=== PATIENT | female | born 1965 | race Asian ===

== ENCOUNTER 2017-11-22 10:14 | Emergency (ER) | payer OTHER ==
[~2017-11-22] VITALS: Ht 157.5 cm; Wt 70.0 kg
[2017-11-22] MEDS ORDERED: ASPI-986 PO (10:21)
[2017-11-22] MEDS ORDERED: SODIUM CHLORIDE 0.9% 500 ML IV ONE (10:32)
[2017-11-22 11:05] LABS: BASOPHILS % 0.7 % (0.0-2.0); EOSINOPHILS % 5.3 % (0.0-5.0); HEMATOCRIT. 40.1 % (36.0-48.0); HEMOGLOBIN. 13.1 g/dL (12.0-16.0); LYMPHOCYTES % 20.8 % (20.0-50.0); MEAN CORPUSCULAR HEMOGLOBIN 26.9 pg (28.0-32.0); MEAN CORPUSCULAR VOLUME 82.5 fL (81.0-99.0); MONOCYTES % 7.4 % (2.0-8.0); NEUTROPHILS % 65.8 % (40.0-76.0); PLATELET 233 x1000/uL (130-400); RED BLOOD CELL COUNT 4.86 mill/uL (4.2-5.4); RED CELL DISTRIBUTION WIDTH 14.5 % (11.6-14.6)
[2017-11-22 11:23] LABS: CARBON DIOXIDE 27 mEq/L (21-32); CHLORIDE 105 mEq/L (98-107); TROPONIN I 0.05 ng/mL (0.00-0.04)
[2017-11-22 11:24] LABS: CREATINE KINASE MB FRACTION 2.5 ng/mL (0.5-3.6)
[2017-11-22 12:36] LABS: INR 1.1; PARTIAL THROMBOPLASTIN TIME 26.6 sec (23.4-31.0); PROTHROMBIN TIME 11.3 sec (9.4-11.6)
[2017-11-22 14:26] VITALS: BP 103/69
== END 2017-11-22 14:42 | disposition left against medical advice (07) ==
LOC: ER 10:31 → EDBEDREQ 11:28 → CANRESERV 12:39 → ENRESERV 12:39 → ER 14:42 → CANRESERV 11-23 07:03 → ENRESERV 11-23 07:03 → CANBEDREQ 11-23 08:04
DX: R55 Syncope and collapse (principal); E11.9 Type 2 diabetes mellitus without complications; I10 Essential (primary) hypertension; E78.00 Pure hypercholesterolemia, unspecified; Z79.82 Long term (current) use of aspirin
CPT/HCPCS: 36415; 70450; 71045; 80053; 82553; 82962; 83735; 83880; 84484; 85025; 85610; 85730; 93005; 96360; 96361; 99285; J7040